=== PATIENT | female | born 1990 | race Caucasian/White ===

== ENCOUNTER → 2016-12-23 | Outpatient (CLI) | payer OTHER ==
[~2016-12-23] MED LIST: PENICILLIN VK250 MG PO; PRILOSEC 20 MG20 MG PO
[2016-12-23 16:24] LABS: CALCIUM 8.7 mg/dL (8.5-10.1); CREATININE 0.7 mg/dL (0.6-1.0); POTASSIUM 3.9 mmol/L (3.5-5.1)
== END ==
LOC: LAB 15:49
PROVIDERS: Specialist
DX: L70.0 Acne vulgaris (principal); Z79.899 Other long term (current) drug therapy